=== PATIENT | male | born 1955 | race Native Hawaiian/Other Pacific Islander ===

== ENCOUNTER 2017-08-09 08:16 | Day surgery (SDC) | payer MEDICARE, BC ==
--- NOTE | 2017-08-13 06:34 | PROCN ---
DATE: 08/09/2017 PROCEDURE: Tilt-table test. INDICATION: Near syncope. [employer]ING ASSEMBLER: Harry Hernandez MD DESCRIPTION OF PROCEDURE: The patient was brought to the laborer filter plant and tilt-table test was performed at 30 degrees for 5 minutes and 60 degrees for 15 minutes. Blood pressure and heart rate response were monitored. There was a 17 mmHg decline somewhat precipitous in blood pressure and 32 beats per minute decrease in heart rate somewhat precipitously. The patient was asymptomatic throughout the test. IMPRESSION: Blood pressure and heart rate response suggestive of cardioinhibitory response to tilt-table test. There is a chance that this could also be a mix vasodepressor and cardioinhibitory response. The patient was asymptomatic throughout the test. Harry Hernandez MD
== END 2017-08-09 09:30 | disposition home or self-care (01) ==
LOC: C.CATHLAB 08:16
PROVIDERS: ATTEND Internal Medicine
DX: R42 Dizziness and giddiness (principal); R55 Syncope and collapse